=== PATIENT | female | born 1950 | race Caucasian/White ===

== ENCOUNTER 2018-11-04 15:35 | Inpatient (IN) | payer BC ==
[2018-11-04] MEDS ORDERED: CEPACOL LOZENGE PO PRN (17:30)
[2018-11-04] MEDS ORDERED: ONDANSETRON DISINTEGRATING 4 MG TAB PO PRN (17:30)
[2018-11-04] MEDS ORDERED: BISACODYL 10 MG SUPP PR PRN (17:30)
[2018-11-04] MEDS ORDERED: GUAIFENESIN/DM 10 ML UDCUP PO PRN (17:30)
[2018-11-04] MEDS ORDERED: POLYETHYLENE GLYCOL 3350 17 GM PKT PO PRN (17:30)
[2018-11-04] MEDS ORDERED: ACETAMINOPHEN 325 MG TAB PO PRN (17:30)
--- NOTE | 2018-11-04 19:01 | GHP ---
[f rep st] HISTORY AND PHYSICAL POST ADMISSION PHYSICIAN EVALUATION AND REHABILITATION TREATMENT PLAN DATE OF ADMISSION: 11/04/2018 DATE OF EVALUATION: November 04, 2018 TIME OF EVALUATION: 1540 REFERRING FACILITY: [facility]. IMPAIRMENT GROUP: 2.1. DATE OF ONSET: 10/21/2018 REFERRING PHYSICIANS: She was on the hospital medicine service. CONSULTING PHYSICIANS: She was seen by Infectious Disease, Nephrology, and Neurology. REHABILITATION DIAGNOSIS: Encephalitis. ETIOLOGIC DIAGNOSIS: Nontraumatic brain dysfunction. HISTORY OF PRESENT ILLNESS: This patient had an approximately 6-day history of illness, including fevers and myalgias. She had 2 visits to Urgent Care. Initially she was diagnosed with a possible UTI and treated with oral antibiotics. She was tested for influenza, and this was negative. On her second Urgent Care visit, she was transferred to the emergency department for further evaluation of malaise, confusion, and dehydration. She was diagnosed with encephalopathy based on her clinical presentation plus CSF pleocytosis, predominantly lymphocytes. She also had elevated white blood cell count. Evaluation included head CT and brain MRI, which ruled out stroke or any other anatomic intracranial abnormality. She had an EEG, which showed right cortical abnormalities for which she was begun on levetiracetam. She had an extensive workup for autoimmune and infectious etiologies. She was positive for Aden- Carty virus, but this was likely remote. She was negative for HSV and VZV. Hospital course included acute kidney injury due to acyclovir, which was discontinued, and subsequently she was negative for HSV or VZV. On repeat LP she had worsening pleocytosis with a white count of 208, again predominantly lymphocytes. Glucose was 33, and protein was 67. Hospital course included delirium, which was treated with haloperidol. There was also a dose of lorazepam given, though it is unclear whether that might have been done for the purpose of brain imaging. She has had insomnia. She had constipation, which was relieved after 7 days with a large bowel movement and subsequently has been constipated for the past 4 days. She was treated with initially vancomycin and ceftriaxone. Subsequently, the vancomycin was discontinued. Ceftriaxone was continued, and her last day of it is tomorrow. She had clinical improvement and was appropriate for inpatient rehabilitation. Currently, she complains of a tremor, weakness, and loss of appetite. Other studies and labs during her stay: Most recently, a basic metabolic profile from this morning was overall normal. Her potassium was slightly low at 3.4. She has had extensive potassium replacement during her hospitalization. CBC this morning was normal with no elevated white blood cell count, no anemia, and normal platelet count. PRECAUTIONS: She is a fall risk. She has seizure precautions. ACTIVE COMORBIDITIES: She has no active Tier 1, Tier 2 or Tier 3 comorbidities. PAST MEDICAL HISTORY: She has been healthy and has not had medical illnesses. PAST SURGICAL HISTORY: She has had a hysterectomy. PRE-HOSPITAL MEDICATIONS: Cefdinir and ibuprofen. ADMISSION MEDICATIONS: 1. Acetaminophen 650 mg p.o. q.4 hours p.r.n. 2. Cepacol lozenge q.1 hour p.r.n. 3. Benzonatate 100 mg p.o. q.4 hours p.r.n. 4. Bisacodyl 10 mg per rectum q. day p.r.n. 5. Guaifenesin/dextromethorphan 10 mL p.o. q.4 hours p.r.n. 6. Levetiracetam 500 mg p.o. b.i.d. 7. Mirtazapine 15 mg p.o. q.h.s. 8. Ondansetron 4 mg p.o. q.4 hours p.r.n. 9. Polyethylene glycol 17 g p.o. q. day p.r.n. 10. Potassium chloride 20 mEq p.o. Twice daily 11. Senna/docusate 1 tablet p.o. q. day. ALLERGIES: There are no known drug allergies. PSYCHOSOCIAL HISTORY: She is . She lives with her . Her adult daughter is involved in her care. There are 2 steps to enter the house and 8 stairs to the second floor. 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 She is a smoker but has not smoked since she has been hospitalized. FAMILY HISTORY: Noncontributory. REVIEW OF SYSTEMS: She has a tremor. She has a reduced appetite. She has constipation x4 days. She feels generalized weakness, and she has lost weight. She denies fevers or chills. She denies vision changes, difficulty swallowing , weakness, numbness or tingling of the extremities. She denies loss of sense of smell. She has a cough which is nonproductive. She denies dyspnea. She denies mouth pain or pain with swallowing. She denies chest pain or palpitations. She denies nausea or vomiting. She denies abdominal pain. She denies dysuria or urinary frequency. There is no vaginal discharge or pruritus. There is no joint pain or joint swelling. There is no skin rash or skin breakdown. Otherwise, a 10-point review of systems is negative. PHYSICAL EXAMINATION: VITAL SIGNS: Vitals are not yet available in the chart. Her weight is 48.2 kg for a body mass index of 21.8. GENERAL: This is a well -nourished, well-developed woman lying in bed, dressed in street clothes, cooperative and in no acute distress. HEENT: Extraocular movements are intact. Pupils are equal, round, and reactive to light. Mucous membranes are moist. Dentition is in good condition. She has a moderately crowded airway, Mallampati class III. There is no oropharyngeal erythema or exudate. NECK: Supple. HEART: There are regular rate and rhythm with a 2/6 systolic murmur heard best at the left sternal border. LUNGS: Clear to auscultation bilaterally. ABDOMEN: Soft, nontender, nondistended with normoactive bowel sounds and no hepatosplenomegaly. EXTREMITIES: There is no cyanosis, clubbing , or edema. Radial and dorsalis pedis pulses are 2+ bilaterally. NEUROLOGIC: She is alert and oriented x3. Cranial nerves 2 through 12 are grossly intact. She is able to distinguish and identify smells presented by her daughter. There is no focal weakness. Sensation is intact to light touch. Deep tendon reflexes are 2 to 3+ bilaterally at the biceps, patellar, and Achilles tendons. [id number] pointing is accurate but confounded somewhat by an intention tremor. There is no rest tremor. Rapid alternating movements are normal. CURRENT LEVEL OF FUNCTION PER THE PREADMISSION SCREEN: Regarding diet, feeding , and swallowing, she had no dysphagia. She required close supervision and minimal assist due to tremors. She did grooming with contact guard assist standing at sink. Toileting was done with contact guard assist with front- wheeled walker for transfers. Bed mobility required contact guard assist with voice cues to initiate the task. Transfers were done with contact guard assist and voice cues for hand placement; she required repetition for sequencing. Regarding balance, she was noted to have delayed balance reactions requiring contact guard to minimal assist for dynamic activities. Endurance was fair. She ambulated 500 feet with contact guard assist and directional cues. She had multiple losses of balance requiring assistance to correct. Communication was considered normal. Regarding cognition, she was considered to have decreased safety judgment. She was a fall risk. On today's exam, there are no significant changes from the preadmission screen. IMPRESSION: This is a 67-year-old woman who has an encephalitis of unknown etiology. She has improved with treatment with ceftriaxone. It is possible that it was bacterial and cultures were negative because of oral antibiotics that she was taking previously. She has had a very full workup with some labs still pending. She has had considerable functional improvement, including improvement in cognition, though she had significant delirium while in the hospital. She has had constipation. She has a reduced appetite. She has had difficulty with sleep. She has had hypokalemia. She is otherwise medically stable and appropriate for inpatient rehabilitation. Her goal is to complete a rehabilitation stay and then return home with her family and supportive services. For a safe discharge, she will need to progress to modified independence for ADLs and functional activities using the least restrictive device. She will need to be aware of any cognitive impairments and use compensatory strategies. She will have therapy with physical therapy, occupational therapy, and speech and language pathology for 60 minutes per day for each discipline, on 5-7 days of the week. Her expected duration of stay is 5-7 days. It is anticipated that upon discharge she will benefit from outpatient or home health services, including OT, [facility], PT, and nursing. PLAN: 1. Encephalitis with prolonged hospitalization, weakness, and deficits to mobility and ADLs: PT and OT to optimize mobility and ADLs toward the independent or modified independent level. 2. Status post delirium with cognitive impairment: Evaluation and treatment per Speech and Language Pathology. 3. Cough of unclear etiology: She has had normal chest x-rays, normal white blood cell count at the end of her hospitalization and no dyspnea. Continue cough suppressant medications. 4. Hypokalemia. Continue potassium replacement. Check BMP and magnesium in the morning. 5. Abnormal EEG in the hospital for which she has been prescribed levetiracetam: This will be continued until she follows up with Neurology after her discharge for decision on the need for continued levetiracetam. There was no seizure activity seen in the hospital. 6. Mirtazapine has been prescribed, presumably for insomnia, and may have appetite-stimulating effects as well. She will be monitored for adequacy of sleep. She will meet with the dietitian, and her family was encouraged to bring in foods that she likes. I will order daily weights. 7. Tobacco dependence syndrome: Should she developed cigarette craving, I will initiate a nicotine patch. 8. Constipation: Continue scheduled senna/docusate. I will change the polyethylene glycol from p.r.n. to scheduled. Fleet enema and bisacodyl suppository are available on an as-needed basis. 9. Prophylaxis: She has ambulated 500 feet. She does not have any paresis. She is low risk for deep vein thrombosis, and she will not have pharmacologic prophylaxis. 10. Followup: She will follow up with [facility] after her discharge. Will need to identify her primary care provider as well. /[id number]/MODL MTDD
[2018-11-04] MEDS: levETIRAcetam 500 MG TAB PO SCH (22:09)
[2018-11-04] MEDS: POTASSIUM CL 20 MEQ/15 ML UDCUP PO SCH (22:09)
[2018-11-04] MEDS: MIRTAZAPINE 15 MG TAB PO SCH (22:09)
[2018-11-05] MEDS: SENNOSIDES/DOCUSATE SODIUM TAB PO SCH (09:03)
[2018-11-05] MEDS: levETIRAcetam 500 MG TAB PO SCH ×2 (09:03→21:01)
[2018-11-05] MEDS: POTASSIUM CL 20 MEQ/15 ML UDCUP PO SCH (09:03)
[2018-11-05] MEDS: POLYETHYLENE GLYCOL 3350 17 GM PKT PO SCH (09:03)
--- NOTE | 2018-11-05 09:50 | SOAPPROG ---
SOAP Progress Note Assessment/Plan: Assessment: Encephalitis with prolonged hospitalization, weakness, and deficits to mobility and ADLs: PT and OT to optimize mobility and ADLs toward the independent or modified independent level. Status post delirium with cognitive impairment: Evaluation and treatment per Speech and Language Pathology. Cough of unclear etiology: She has had normal chest x-rays, normal white blood cell count at the end of her hospitalization and no dyspnea. Continue cough suppressant medications. * As she is a smoker, will get chest CT to evaluate for malignancy, or any other etiology of cough. Hypokalemia. Continue potassium replacement. Check BMP and magnesium in the morning. Abnormal EEG in the hospital for which she has been prescribed levetiracetam: This will be continued until she follows up with Neurology after her discharge for decision on the need for continued levetiracetam. There was no seizure activity seen in the hospital. Mirtazapine has been prescribed, presumably for insomnia, and may have appetite- stimulating effects as well. She will be monitored for adequacy of sleep. She will meet with the dietitian, and her family was encouraged to bring in foods that she likes. I will order daily weights. Tobacco dependence syndrome: Should she developed cigarette craving, I will initiate a nicotine patch. Constipation: Continue scheduled senna/docusate. I will change the polyethylene glycol from p.r.n. to scheduled. Fleet enema and bisacodyl suppository are available on an as-needed basis. Prophylaxis: She has ambulated 500 feet. She does not have any paresis. She is low risk for deep vein thrombosis, and she will not have pharmacologic prophylaxis. Followup: She will follow up with [facility] after her discharge. Will need to identify her primary care provider as well. 11/05/18 13:13 Subjective: Slept well last night. Does not feel over-sedated. No fevers or chills, no dyspnea. Still has reduced appetite, constipation, and cough. She coughed some at night but did not interfere with her sleep. Occasionally there is scant mucus. She denies symptoms of gastroesophageal reflux or sinusitis. Objective: Vital Signs Temp Pulse Resp BP Pulse Ox 36.5 C 85 16 151/87 H 94 11/05/18 06:15 11/05/18 06:15 11/05/18 06:15 11/05/18 06:15 11/05/18 06:15 Laboratory Results 11/05/18 06:05 11/04/18 11/05/18 11/06/18 05:59 05:59 05:59 Intake Total 275 Output Total 400 Balance -125 Physical Exam - Physical Exam General Appearance: WD/WN, alert, no apparent distress Respiratory: normal breath sounds, other (Occasional cough, especially when discussing cough, without sputum.), No crackles, No rhonchi, No wheezing Cardiac/Chest: regular rate, rhythm, No edema, No diastolic murmur, No systolic murmur Skin: normal color, warm/dry Neuro/Psych: alert, normal mood/affect, other (Resting tremor right shoulder and arm) ICD10 Worksheet Patient Problems: Problems Problem Status Onset Encephalitis Acute
--- NOTE | 2018-11-05 12:31 | PDOREHIP ---
Admission [facility] - Admission - 3 Day Assessment Period Admission Date/Day 1: 11/04/18 Day 2: 11/05/18 Day 3: 11/06/18 - Active Diagnoses Comorbidities and Co-existing Conditions at Admission: 79351. None of the Above - Skin Conditions Unhealed Pressure Ulcer (1 or more/Stage 1 or >)-Admission: 0. No # Stage 1 Pressure Ulcers-Admission: 0 # Stage 2 Pressure Ulcers-Admission: 0 # Stage 3 Pressure Ulcers-Admission: 0 # Stage 4 Pressure Ulcers-Admission: 0 # Unstageable Pressure Ulcers (Non-remove Dress)-Admission: 0 # Unstageable Pressure Ulcers (Slough/Eschar)-Admission: 0 # Unstageable Pressure Ulcers (Deep Tissue Injury)-Admission: 0
[2018-11-05] MEDS: BENZONATATE 100 MG CAP PO PRN ×2 (14:19→21:16)
[2018-11-05] MEDS ORDERED: IOPAMIDOL (ISOVUE-300) 100 ML BTL ONE (16:34)
[2018-11-05] MEDS: ENOXAPARIN 60 MG/0.6 ML SYR SC SCH (18:01)
[2018-11-05] MEDS: MIRTAZAPINE 15 MG TAB PO SCH (21:01)
[2018-11-06] MEDS: ENOXAPARIN 60 MG/0.6 ML SYR SC SCH ×2 (09:44→21:54)
[2018-11-06] MEDS: levETIRAcetam 500 MG TAB PO SCH ×2 (09:44→20:14)
[2018-11-06] MEDS: SENNOSIDES/DOCUSATE SODIUM TAB PO SCH ×2 (09:45→20:14)
[2018-11-06] MEDS: POLYETHYLENE GLYCOL 3350 17 GM PKT PO SCH ×2 (09:45→20:14)
--- NOTE | 2018-11-06 10:00 | SOAPPROG ---
SOAP Progress Note Assessment/Plan: Assessment: Encephalitis with prolonged hospitalization, weakness, and deficits to mobility and ADLs: * Minimal assist for most ADLs. * Continue PT and OT to optimize mobility and ADLs toward the independent or modified independent level. Status post delirium with cognitive impairment: * Scored 18/30 on the [place] cognitive assessment. * Continue treatment per Speech and Language Pathology. Pulmonary emboli, discovered in evaluation for cough of unclear etiology: She has had normal chest x-rays, normal white blood cell count at the end of her hospitalization and no dyspnea. Continue cough suppressant medications. * Chest CT, 11/05/2018, showed pulmonary emboli. She was begun on enoxaparin. Discussed with her pharmacy, 11/06/2018. Her insurance plan covers dabigatran with a $40 co-pay. Changed to dabigatran 150 mg p.o. twice daily on 11/06/2018. * Chest CT also showed atelectasis and small pleural effusions. Encourage incentive spirometry. * Chest CT also showed central lobular emphysema. Will have trial of albuterol and we will continue it if she gets resolution of cough. Hypokalemia. * Normal potassium and magnesium on 11/05/2018. Discontinued potassium replacement. Check BMP 11/07/2018. Tremor. Trial of propranolol at 10 mg three times daily. Consider titration if it is not effective, with close attention to blood pressure and pulse.. Insomnia. She has had mirtazapine for her to nights on inpatient rehabilitation. She is over sedated the morning of 11/06/2018. Will discontinue mirtazapine. Expect she will sleep better than she did in the hospital in the more peaceful rehabilitation milieu, with no interruptions for cares overnight. Anorexia and weight loss. Continue to encourage caloric intake. Dietitian following. Abnormal EEG in the hospital for which she has been prescribed levetiracetam: This will be continued until she follows up with Neurology after her discharge for decision on the need for continued levetiracetam. There was no seizure activity seen in the hospital. Tobacco dependence syndrome: Should she developed cigarette craving, I will initiate a nicotine patch. Constipation: Continue scheduled senna/docusate. I will change the polyethylene glycol from p.r.n. to scheduled. Fleet enema and bisacodyl suppository are available on an as-needed basis. Prophylaxis: She has ambulated 500 feet. She does not have any paresis. She is low risk for deep vein thrombosis, and she will not have pharmacologic prophylaxis. Followup: She will follow up with [facility] after her discharge. Will need to identify her primary care provider as well. 11/06/18 09:54 Subjective: Slept well last night. Difficult to awaken this morning and feels drowsy. Still has cough. Denies dyspnea. Denies chest pain. Still has tremor. Objective: Vital Signs Temp Pulse Resp BP Pulse Ox 36.4 C 84 16 126/86 H 94 11/06/18 08:00 11/06/18 05:38 11/06/18 05:38 11/06/18 05:38 11/06/18 05:38 Laboratory Results 11/05/18 06:05 11/05/18 11/06/18 11/07/18 05:59 05:59 05:59 Intake Total 275 955 Output Total 400 725 Balance -125 230 Physical Exam - Physical Exam General Appearance: WD/WN, alert, no apparent distress Respiratory: normal breath sounds, other (Coughs with deep inspiration), No crackles, No rhonchi, No wheezing Cardiac/Chest: regular rate, rhythm, No edema, No diastolic murmur, No systolic murmur Skin: normal color, warm/dry Extremities: No calf tenderness Neuro/Psych: alert, normal mood/affect, cognition abnormalities (Slow processing ), other (Bilateral upper extremity tremor) ICD10 Worksheet Patient Problems: Problems Problem Status Onset Encephalitis Acute
[2018-11-06] MEDS: PROPRANOLOL HCL 10 MG TAB PO SCH ×2 (16:06→21:51)
[2018-11-06] MEDS: BENZONATATE 100 MG CAP PO PRN (20:27)
[2018-11-06] MEDS ORDERED: DABIGATRAN ETEXILATE MESYL 150 MG CAP PO SCH (21:00)
[2018-11-07] MEDS: BENZONATATE 100 MG CAP PO PRN ×3 (01:27→19:42)
[2018-11-07] MEDS: PROPRANOLOL HCL 10 MG TAB PO SCH ×2 (08:16→17:21)
[2018-11-07] MEDS: levETIRAcetam 500 MG TAB PO SCH ×2 (08:16→20:47)
[2018-11-07] MEDS: ENOXAPARIN 60 MG/0.6 ML SYR SC SCH ×2 (08:18→20:48)
[2018-11-07] MEDS ORDERED: PROPRANOLOL HCL 10 MG TAB PO SCH (11:30)
--- NOTE | 2018-11-07 11:46 | SOAPPROG ---
SOAP Progress Note Assessment/Plan: Assessment: Encephalitis with prolonged hospitalization, weakness, and deficits to mobility and ADLs: * Minimal assist for most ADLs. * Continue PT and OT to optimize mobility and ADLs toward the independent or modified independent level. Status post delirium with cognitive impairment: * Scored 18/30 on the [place] cognitive assessment. * Continue treatment per Speech and Language Pathology. Pulmonary emboli, discovered in evaluation for cough of unclear etiology: She has had normal chest x-rays, normal white blood cell count at the end of her hospitalization and no dyspnea. Continue cough suppressant medications. * Chest CT, 11/05/2018, showed pulmonary emboli. She was begun on enoxaparin. Discussed with her pharmacy, 11/06/2018. Her insurance plan covers dabigatran with a $40 co-pay. Continue enoxaparin twice daily x5 days, then change to dabigatran 150 mg p.o. twice daily starting evening of 11/10/2018. * Chest CT also showed atelectasis and small pleural effusions. Encourage incentive spirometry. * Chest CT also showed central lobular emphysema. Will have trial of albuterol and we will continue it if she gets resolution of cough. Hypokalemia. * Normal potassium and magnesium on 11/05/2018. Discontinued potassium replacement. Check BMP 11/07/2018. Tremor. Trial of propranolol at 10 mg three times daily. * Unclear efficacy for tremor. Await observation is of nursing and therapies. Has had a slight decrease in blood pressure and pulse so unclear how much room there is for titration. Insomnia. She has had mirtazapine for her to nights on inpatient rehabilitation. She is over sedated the morning of 11/06/2018. Will discontinue mirtazapine. Expect she will sleep better than she did in the hospital in the more peaceful rehabilitation milieu, with no interruptions for cares overnight. Anorexia and weight loss. Continue to encourage caloric intake. Dietitian following. Abnormal EEG in the hospital for which she has been prescribed levetiracetam: This will be continued until she follows up with Neurology after her discharge for decision on the need for continued levetiracetam. There was no seizure activity seen in the hospital. Tobacco dependence syndrome: Should she developed cigarette craving, I will initiate a nicotine patch. Constipation: Continue scheduled senna/docusate. I will change the polyethylene glycol from p.r.n. to scheduled. Fleet enema and bisacodyl suppository are available on an as-needed basis. Prophylaxis: She has ambulated 500 feet. She does not have any paresis. She is low risk for deep vein thrombosis, and she will not have pharmacologic prophylaxis. Followup: She will follow up with [facility] after her discharge. Will need to identify her primary care provider as well. 11/07/18 11:33 Subjective: Reports she slept well overnight. Then she was sleepy and napping after breakfast. She thinks her tremor might be a little bit better. She still has a cough and took benzonatate yesterday evening. Otherwise without complaints. Objective: Vital Signs Temp Pulse Resp BP Pulse Ox 36.8 C 69 16 118/74 93 11/07/18 05:41 11/07/18 08:16 11/07/18 05:41 11/07/18 08:16 11/07/18 05:41 Laboratory Results 11/07/18 05:40 11/06/18 11/07/18 11/08/18 05:59 05:59 05:59 Intake Total 955 520 205 Output Total 725 Balance 230 520 205 Physical Exam - Physical Exam General Appearance: WD/WN, alert, no apparent distress Respiratory: normal breath sounds, other (Coughs with deep inspiration), No crackles, No rhonchi, No wheezing Cardiac/Chest: regular rate, rhythm, No diastolic murmur, No systolic murmur Skin: normal color, warm/dry Neuro/Psych: alert, normal mood/affect, oriented x 3, other (Extension tremor) ICD10 Worksheet Patient Problems: Problems Problem Status Onset Encephalitis Acute
[2018-11-08] MEDS: BENZONATATE 100 MG CAP PO PRN ×2 (05:28→13:40)
[2018-11-08] MEDS: PROPRANOLOL HCL 10 MG TAB PO SCH ×2 (07:23→17:40)
[2018-11-08] MEDS: ENOXAPARIN 60 MG/0.6 ML SYR SC SCH ×2 (07:28→20:15)
[2018-11-08] MEDS: levETIRAcetam 500 MG TAB PO SCH ×2 (07:59→20:15)
[2018-11-08] MEDS: POLYETHYLENE GLYCOL 3350 17 GM PKT PO SCH (07:59)
[2018-11-08] MEDS: SENNOSIDES/DOCUSATE SODIUM TAB PO SCH (08:00)
--- NOTE | 2018-11-08 11:32 | SOAPPROG ---
SOAP Progress Note Assessment/Plan: Assessment: Encephalitis with prolonged hospitalization, weakness, and deficits to mobility and ADLs: * Initial functional independence measure is 71 on 11/08/2018. Standby assist for bed mobility. Cues to initiate. Ambulated 150 ft with contact guard assist and front wheeled walker. She tends to veer to the right. Transfer requires contact guard assist. Climbed and descended 3 stairs with bilateral rails, contact guard to minimal assist. Fall risk due to impulsivity and impaired balance. She can forget to take her walker with her. Grooming and hygiene are done standing with contact guard assist. Upper body dressing with minimal assist, lower body with contact guard assist. Toilet transfer and toileting with contact guard assist per * Continue PT and OT to optimize mobility and ADLs toward the independent or modified independent level. Status post delirium with cognitive impairment: * Scored 18/30 on the [facility] cognitive assessment on 11/05/2018. OLOG 18/30 on 11/08/2018. * Moderate to severe cognitive deficits. * Continue treatment per Speech and Language Pathology. Pulmonary emboli, discovered in evaluation for cough of unclear etiology: She has had normal chest x-rays, normal white blood cell count at the end of her hospitalization and no dyspnea. Continue cough suppressant medications. * Chest CT, 11/05/2018, showed pulmonary emboli. She was begun on enoxaparin. Discussed with her pharmacy, 11/06/2018. Her insurance plan covers dabigatran with a $40 co-pay. Continue enoxaparin twice daily x5 days, then change to dabigatran 150 mg p.o. twice daily starting evening of 11/10/2018. * Chest CT also showed atelectasis and small pleural effusions. Encourage incentive spirometry. * Chest CT also showed central lobular emphysema. Will have trial of albuterol and we will continue it if she gets resolution of cough. Hypokalemia. * Normal potassium and magnesium on 11/05/2018. Discontinued potassium replacement. Check BMP 11/07/2018. Tremor. Trial of propranolol at 15 mg twice daily. * Unclear efficacy for tremor. Await observation is of nursing and therapies. Has had a slight decrease in blood pressure and pulse so unclear how much room there is for titration. * Improved ability to eat will less interference from tremor using weighted utensils. Insomnia. She has had mirtazapine for her to nights on inpatient rehabilitation. She is oversedated the morning of 11/06/2018. Discontinued mirtazapine. * Sleeping well Anorexia and weight loss. Continue to encourage caloric intake. Dietitian following. * Taking 50% of meals, plus supplements. Abnormal EEG in the hospital for which she has been prescribed levetiracetam: This will be continued until she follows up with Neurology after her discharge for decision on the need for continued levetiracetam. There was no seizure activity seen in the hospital. Tobacco dependence syndrome: Should she developed cigarette craving, I will initiate a nicotine patch. Constipation: Continue scheduled senna/docusate and polyethylene glycol. * Responding. Prophylaxis: Continue treatment dose enoxaparin until changed to dabigatran on 11/10/2018. DISPOSITION: Attended staffing, 11/08/2018, 15 min. Discussed with case management, nursing, dietitian, PT, OT, SUGAR LABORATORY ASSISTANT. Lives with who is retired and available 24 hr a day; adult daughter also lives with them. Goal is independent or modified independent with activities of daily living and mobility and improved cognition for safety at home. Tentative discharge date set for 11/17/2018. Followup: She will follow up with [facility] after her discharge. Will need to identify her primary care provider as well. 11/08/18 11:21 Subjective: Slept well. Has increased awareness of cognitive/memory deficits. Still has cough. Denies reflux symptoms though speech therapist thinks she witnessed a reflux event. Objective: Vital Signs Temp Pulse Resp BP Pulse Ox 36.8 C 77 16 135/72 H 92 11/08/18 06:11 11/08/18 07:23 11/08/18 06:11 11/08/18 07:23 11/08/18 06:11 Laboratory Results 11/07/18 05:40 11/07/18 11/08/18 11/09/18 05:59 05:59 05:59 Intake Total 520 775 270 Balance 520 775 270 Physical Exam - Physical Exam General Appearance: WD/WN, alert, no apparent distress Respiratory: normal breath sounds, other (Coughing at end of expirations), No crackles, No rhonchi, No stridor Cardiac/Chest: regular rate, rhythm, No edema, No JVD, No diastolic murmur, No systolic murmur Skin: normal color, warm/dry Neuro/Psych: alert, normal mood/affect, other (Normal gait, with front wheeled walker.) ICD10 Worksheet Patient Problems: Problems Problem Status Onset Encephalitis Acute
[2018-11-09] MEDS: ENOXAPARIN 60 MG/0.6 ML SYR SC SCH ×2 (07:29→20:20)
[2018-11-09] MEDS: PROPRANOLOL HCL 10 MG TAB PO SCH ×2 (07:31→18:14)
[2018-11-09] MEDS: POLYETHYLENE GLYCOL 3350 17 GM PKT PO SCH (08:08)
[2018-11-09] MEDS: BENZONATATE 100 MG CAP PO PRN ×2 (08:10→14:22)
[2018-11-09] MEDS: levETIRAcetam 500 MG TAB PO SCH ×2 (08:11→20:20)
[2018-11-09] MEDS: SENNOSIDES/DOCUSATE SODIUM TAB PO SCH (08:12)
--- NOTE | 2018-11-09 13:08 | SOAPPROG ---
SOAP Progress Note Assessment/Plan: Assessment: Encephalitis with prolonged hospitalization, weakness, and deficits to mobility and ADLs: * Initial functional independence measure is 71 on 11/08/2018. Standby assist for bed mobility. Cues to initiate. Ambulated 150 ft with contact guard assist and front wheeled walker. She tends to veer to the right. Transfer requires contact guard assist. Climbed and descended 3 stairs with bilateral rails, contact guard to minimal assist. Fall risk due to impulsivity and impaired balance. She can forget to take her walker with her. Grooming and hygiene are done standing with contact guard assist. Upper body dressing with minimal assist, lower body with contact guard assist. Toilet transfer and toileting with contact guard assist per * Continue PT and OT to optimize mobility and ADLs toward the independent or modified independent level. Status post delirium with cognitive impairment: * Scored 18/30 on the [facility] cognitive assessment on 11/05/2018. OLOG 18/30 on 11/08/2018. * Moderate to severe cognitive deficits. * Continue treatment per Speech and Language Pathology. Pulmonary emboli, discovered in evaluation for cough of unclear etiology: She has had normal chest x-rays, normal white blood cell count at the end of her hospitalization and no dyspnea. Continue cough suppressant medications. * Chest CT, 11/05/2018, showed pulmonary emboli. She was begun on enoxaparin. Discussed with her pharmacy, 11/06/2018. Her insurance plan covers dabigatran with a $40 co-pay. Continue enoxaparin twice daily x5 days, then change to dabigatran 150 mg p.o. twice daily starting evening of 11/10/2018. * Chest CT also showed atelectasis and small pleural effusions. Encourage incentive spirometry. * Chest CT also showed central lobular emphysema. Will have trial of albuterol and we will continue it if she gets resolution of cough. Hypokalemia. * Normal potassium and magnesium on 11/05/2018. Discontinued potassium replacement. Normal BMP 11/07/2018. Tremor. Trial of propranolol at 15 mg twice daily. * Unclear efficacy for tremor. Await observation is of nursing and therapies. Has had a slight decrease in blood pressure and pulse so unclear how much room there is for titration. * Improved ability to eat will less interference from tremor using weighted utensils. * OT notes reduced tremor, 11/09/2018. Insomnia. She has had mirtazapine first 2 nights on inpatient rehabilitation. She is oversedated the morning of 11/06/2018. Discontinued mirtazapine. * Sleeping well Anorexia and weight loss. Continue to encourage caloric intake. Dietitian following. * Taking 50% of meals, plus supplements. Abnormal EEG in the hospital for which she has been prescribed levetiracetam: This will be continued until she follows up with Neurology after her discharge for decision on the need for continued levetiracetam. There was no seizure activity seen in the hospital. Tobacco dependence syndrome: Denies craving, 11/09/2018. Constipation: Continue scheduled senna/docusate and polyethylene glycol. * Responding. Prophylaxis: Continue treatment dose enoxaparin until changed to dabigatran on 11/10/2018. DISPOSITION: Attended staffing, 11/08/2018, 15 min. Discussed with case management, nursing, dietitian, PT, OT, CYLINDER MACHINE OPERATOR PULP DRIER. Lives with who is retired and available 24 hr a day; adult daughter also lives with them. Goal is independent or modified independent with activities of daily living and mobility and improved cognition for safety at home. Tentative discharge date set for 11/17/2018. Followup: She will follow up with [facility] after her discharge. Will need to identify her primary care provider as well. 11/09/18 13:05 Subjective: No complaints. Slept well. Not in pain. Still is still has a cough, nonproductive. She feels a tickle in her chest but not in her throat. No dyspnea, no fevers or chills. Appetite improving. Objective: Vital Signs Temp Pulse Resp BP Pulse Ox 36.4 C 64 14 107/69 96 11/09/18 12:45 11/09/18 12:45 11/09/18 12:45 11/09/18 12:45 11/09/18 12:45 Laboratory Results 11/07/18 05:40 11/08/18 11/09/18 11/10/18 05:59 05:59 05:59 Intake Total 775 835 Output Total 300 Balance 775 535 Physical Exam - Physical Exam General Appearance: WD/WN, alert, no apparent distress Respiratory: normal breath sounds, other (Coughs with expiration.), No crackles , No rhonchi, No wheezing Cardiac/Chest: regular rate, rhythm, No JVD, No diastolic murmur, No systolic murmur Skin: normal color, warm/dry Neuro/Psych: alert, normal mood/affect, oriented x 3 ICD10 Worksheet Patient Problems: Problems Problem Status Onset Encephalitis Acute
[2018-11-10] MEDS: SENNOSIDES/DOCUSATE SODIUM TAB PO SCH (08:56)
[2018-11-10] MEDS: levETIRAcetam 500 MG TAB PO SCH ×2 (08:56→20:24)
[2018-11-10] MEDS: PROPRANOLOL HCL 10 MG TAB PO SCH ×2 (08:57→17:26)
[2018-11-10] MEDS: ENOXAPARIN 60 MG/0.6 ML SYR SC SCH (09:00)
[2018-11-10] MEDS: BENZONATATE 100 MG CAP PO PRN ×3 (09:13→19:32)
--- NOTE | 2018-11-10 09:36 | SOAPPROG ---
SOAP Progress Note Assessment/Plan: Assessment: Encephalitis with prolonged hospitalization, weakness, and deficits to mobility and ADLs: * Initial functional independence measure is 71 on 11/08/2018. Standby assist for bed mobility. Cues to initiate. Ambulated 150 ft with contact guard assist and front wheeled walker. She tends to veer to the right. Transfer requires contact guard assist. Climbed and descended 3 stairs with bilateral rails, contact guard to minimal assist. Fall risk due to impulsivity and impaired balance. She can forget to take her walker with her. Grooming and hygiene are done standing with contact guard assist. Upper body dressing with minimal assist, lower body with contact guard assist. Toilet transfer and toileting with contact guard assist. * Continue PT and OT to optimize mobility and ADLs toward the independent or modified independent level. Status post delirium with cognitive impairment, improving: * Scored 18/30 on the [facility] cognitive assessment on 11/05/2018. OLOG 18/30 on 11/08/2018, 21/30 on 11/09/2018. * Moderate to severe cognitive deficits. * Continue treatment per Speech and Language Pathology. Pulmonary emboli, discovered in evaluation for cough of unclear etiology: She has had normal chest x-rays, normal white blood cell count at the end of her hospitalization and no dyspnea. Continue cough suppressant medications. * Chest CT, 11/05/2018, showed pulmonary emboli. She was begun on enoxaparin. Discussed with her pharmacy, 11/06/2018. Her insurance plan covers dabigatran with a $40 co-pay. Continue enoxaparin twice daily x5 days, then change to dabigatran 150 mg p.o. twice daily starting evening of 11/10/2018. * Chest CT also showed atelectasis and small pleural effusions. Encourage incentive spirometry. * Chest CT also showed central lobular emphysema. Will have trial of albuterol and we will continue it if she gets resolution of cough. Hypokalemia. * Normal potassium and magnesium on 11/05/2018. Discontinued potassium replacement. Normal BMP 11/07/2018. Tremor. Trial of propranolol at 15 mg twice daily. * Improved. Not needing weighted utensils on 11/10/2018. * Continue propranolol. Insomnia. She has had mirtazapine first 2 nights on inpatient rehabilitation. She is oversedated the morning of 11/06/2018. Discontinued mirtazapine. * Sleeping well Anorexia and weight loss. Continue to encourage caloric intake. Dietitian following. * Taking 50% of meals, plus supplements. Abnormal EEG in the hospital for which she has been prescribed levetiracetam: This will be continued until she follows up with Neurology after her discharge for decision on the need for continued levetiracetam. There was no seizure activity seen in the hospital. Tobacco dependence syndrome: Denies craving, 11/09/2018. Constipation: Continue scheduled senna/docusate and polyethylene glycol. * Responding. Prophylaxis: Continue treatment dose enoxaparin until changed to dabigatran on 11/10/2018. DISPOSITION: Attended staffing, 11/08/2018, 15 min. Discussed with case management, nursing, dietitian, PT, OT, COPYRIGHT EXPERT. Lives with who is retired and available 24 hr a day; adult daughter also lives with them. Goal is independent or modified independent with activities of daily living and mobility and improved cognition for safety at home. Tentative discharge date set for 11/17/2018. Followup: She will follow up with [facility] after her discharge. Will need to identify her primary care provider as well. 11/10/18 12:10 Subjective: No complaints. Slept well. Has fatigue today after being more active with therapies yesterday. Reports cough is improving. Objective: Vital Signs Temp Pulse Resp BP Pulse Ox 36.8 C 69 15 106/66 95 11/10/18 05:58 11/10/18 08:57 11/10/18 05:58 11/10/18 08:57 11/10/18 05:58 Laboratory Results 11/07/18 05:40 11/09/18 11/10/18 11/11/18 05:59 05:59 05:59 Intake Total 835 320 Output Total 300 250 Balance 535 70 Physical Exam - Physical Exam General Appearance: WD/WN, alert, no apparent distress Respiratory: No respiratory distress, No accessory muscle use Skin: normal color, warm/dry Neuro/Psych: alert, normal mood/affect, oriented x 3 ICD10 Worksheet Patient Problems: Problems Problem Status Onset Encephalitis Acute
[2018-11-10] MEDS: POLYETHYLENE GLYCOL 3350 17 GM PKT PO SCH (11:03)
[2018-11-10] MEDS: DABIGATRAN ETEXILATE MESYL 150 MG CAP PO SCH (20:24)
[2018-11-11] MEDS: DABIGATRAN ETEXILATE MESYL 150 MG CAP PO SCH ×2 (08:32→20:38)
[2018-11-11] MEDS: SENNOSIDES/DOCUSATE SODIUM TAB PO SCH (08:32)
[2018-11-11] MEDS: PROPRANOLOL HCL 10 MG TAB PO SCH ×2 (08:33→17:49)
[2018-11-11] MEDS: POLYETHYLENE GLYCOL 3350 17 GM PKT PO SCH (08:34)
[2018-11-11] MEDS: levETIRAcetam 500 MG TAB PO SCH ×2 (08:34→20:38)
--- NOTE | 2018-11-11 12:10 | SOAPPROG ---
SOAP Progress Note Assessment/Plan: Assessment: Encephalitis with prolonged hospitalization, weakness, and deficits to mobility and ADLs: * Initial functional independence measure is 71 on 11/08/2018. Standby assist for bed mobility. Cues to initiate. Ambulated 150 ft with contact guard assist and front wheeled walker. She tends to veer to the right. Transfer requires contact guard assist. Climbed and descended 3 stairs with bilateral rails, contact guard to minimal assist. Fall risk due to impulsivity and impaired balance. She can forget to take her walker with her. Grooming and hygiene are done standing with contact guard assist. Upper body dressing with minimal assist, lower body with contact guard assist. Toilet transfer and toileting with contact guard assist. * Continue PT and OT to optimize mobility and ADLs toward the independent or modified independent level. Status post delirium with cognitive impairment, improving: * Scored 18/30 on the [facility] cognitive assessment on 11/05/2018. OLOG 18/30 on 11/08/2018, 21/30 on 11/09/2018. * Moderate to severe cognitive deficits. * Continue treatment per Speech and Language Pathology. Pulmonary emboli, discovered in evaluation for cough of unclear etiology: She has had normal chest x-rays, normal white blood cell count at the end of her hospitalization and no dyspnea. Continue cough suppressant medications. * Chest CT, 11/05/2018, showed pulmonary emboli. She was begun on enoxaparin. Discussed with her pharmacy, 11/06/2018. Her insurance plan covers dabigatran with a $40 co-pay. Had enoxaparin twice daily x5 days, then changed to dabigatran 150 mg p.o. twice daily starting evening of 11/10/2018. Will need to continue 3-6 months. * Chest CT also showed atelectasis and small pleural effusions. Encourage incentive spirometry. * Chest CT also showed central lobular emphysema. Will have trial of albuterol and we will continue it if she gets resolution of cough. Hypokalemia. * Normal potassium and magnesium on 11/05/2018. Discontinued potassium replacement. Normal BMP 11/07/2018. Tremor. Trial of propranolol at 15 mg twice daily. * Improved. Not needing weighted utensils on 11/10/2018. * Continue propranolol. Insomnia. She has had mirtazapine first 2 nights on inpatient rehabilitation. She is oversedated the morning of 11/06/2018. Discontinued mirtazapine. * Sleeping well Anorexia and weight loss. Continue to encourage caloric intake. Dietitian following. * Taking 50% of meals, plus supplements. Abnormal EEG in the hospital for which she has been prescribed levetiracetam: This will be continued until she follows up with Neurology after her discharge for decision on the need for continued levetiracetam. There was no seizure activity seen in the hospital. Tobacco dependence syndrome: Denies craving, 11/09/2018. Constipation: Continue scheduled senna/docusate and polyethylene glycol. * Responding. Prophylaxis: Continue treatment dose enoxaparin until changed to dabigatran on 11/10/2018. DISPOSITION: Attended staffing, 11/08/2018, 15 min. Discussed with case management, nursing, dietitian, PT, OT, ALLERGIST/IMMUNOLOGIST PHYSICIAN. Lives with who is retired and available 24 hr a day; adult daughter also lives with them. Goal is independent or modified independent with activities of daily living and mobility and improved cognition for safety at home. Tentative discharge date set for 11/17/2018. Followup: She will follow up with [facility] after her discharge. Will need to identify her primary care provider as well. 11/11/18 12:09 Subjective: No complaints. Sleeping well. Not in pain. Still has a cough but is improving. No dyspnea. Objective: Vital Signs Temp Pulse Resp BP Pulse Ox 36.9 C 67 16 113/64 95 11/11/18 05:20 11/11/18 08:33 11/11/18 05:20 11/11/18 08:33 11/11/18 05:20 Laboratory Results 11/07/18 05:40 11/10/18 11/11/18 11/12/18 05:59 05:59 05:59 Intake Total 320 1030 Output Total 250 225 Balance 70 805 Physical Exam - Physical Exam General Appearance: WD/WN, alert, no apparent distress Respiratory: No respiratory distress, No accessory muscle use Skin: normal color, warm/dry Neuro/Psych: alert, normal mood/affect, oriented x 3 ICD10 Worksheet Patient Problems: Problems Problem Status Onset Encephalitis Acute
[2018-11-11] MEDS: BENZONATATE 100 MG CAP PO PRN (20:49)
[2018-11-12] MEDS: PROPRANOLOL HCL 10 MG TAB PO SCH ×2 (07:30→17:32)
[2018-11-12] MEDS: SENNOSIDES/DOCUSATE SODIUM TAB PO SCH (10:09)
[2018-11-12] MEDS: levETIRAcetam 500 MG TAB PO SCH ×2 (10:09→21:52)
[2018-11-12] MEDS: POLYETHYLENE GLYCOL 3350 17 GM PKT PO SCH (10:10)
[2018-11-12] MEDS: DABIGATRAN ETEXILATE MESYL 150 MG CAP PO SCH ×2 (10:10→21:52)
--- NOTE | 2018-11-12 12:43 | SOAPPROG ---
SOAP Progress Note Assessment/Plan: Assessment: Encephalitis with prolonged hospitalization, weakness, and deficits to mobility and ADLs: * Initial functional independence measure is 71 on 11/08/2018. Standby assist for bed mobility. Cues to initiate. Ambulated 150 ft with contact guard assist and front wheeled walker. She tends to veer to the right. Transfer requires contact guard assist. Climbed and descended 3 stairs with bilateral rails, contact guard to minimal assist. Fall risk due to impulsivity and impaired balance. She can forget to take her walker with her. Grooming and hygiene are done standing with contact guard assist. Upper body dressing with minimal assist, lower body with contact guard assist. Toilet transfer and toileting with contact guard assist. * As of 11/11/2018, ambulating 400 ft with cane standby assist, climbed and descended nerve 12 stairs with 1 rail and cane and supervision. * Continue PT and OT to optimize mobility and ADLs toward the independent or modified independent level. Status post delirium with cognitive impairment, improving: * Scored 18/30 on the [facility] cognitive assessment on 11/05/2018. OLOG 18/30 on 11/08/2018, 21/30 on 11/09/2018. * Moderate to severe cognitive deficits. * Continue treatment per Speech and Language Pathology. Pulmonary emboli, discovered in evaluation for cough of unclear etiology: She has had normal chest x-rays, normal white blood cell count at the end of her hospitalization and no dyspnea. Continue cough suppressant medications. * Chest CT, 11/05/2018, showed pulmonary emboli. She was begun on enoxaparin. Discussed with her pharmacy, 11/06/2018. Her insurance plan covers dabigatran with a $40 co-pay. Had enoxaparin twice daily x5 days, then changed to dabigatran 150 mg p.o. twice daily starting evening of 11/10/2018. Will need to continue 3-6 months. * Chest CT also showed atelectasis and small pleural effusions. Encourage incentive spirometry. * Chest CT also showed central lobular emphysema. Will have trial of albuterol and we will continue it if she gets resolution of cough. Hypokalemia. * Normal potassium and magnesium on 11/05/2018. Discontinued potassium replacement. Normal BMP 11/07/2018. Tremor. Trial of propranolol at 15 mg twice daily. * Improved. Not needing weighted utensils on 11/10/2018. * Continue propranolol. Insomnia. She has had mirtazapine first 2 nights on inpatient rehabilitation. She is oversedated the morning of 11/06/2018. Discontinued mirtazapine. * Sleeping well Anorexia and weight loss. Continue to encourage caloric intake. Dietitian following. * Taking 50% of meals, plus supplements. Abnormal EEG in the hospital for which she has been prescribed levetiracetam: This will be continued until she follows up with Neurology after her discharge for decision on the need for continued levetiracetam. There was no seizure activity seen in the hospital. Tobacco dependence syndrome: Denies craving, 11/09/2018. Constipation: Continue scheduled senna/docusate and polyethylene glycol. * Responding. Prophylaxis: Continue treatment dose enoxaparin until changed to dabigatran on 11/10/2018. DISPOSITION: Attended staffing, 11/08/2018, 15 min. Discussed with case management, nursing, dietitian, PT, OT, HAT CONDITIONER. Lives with who is retired and available 24 hr a day; adult daughter also lives with them. Goal is independent or modified independent with activities of daily living and mobility and improved cognition for safety at home. Tentative discharge date set for 11/17/2018. Followup: She will follow up with [facility] after her discharge. Will need to identify her primary care provider as well. 11/12/18 12:39 Subjective: No complaints. Sleeping well. Cough is improving. No fevers or chills, no dyspnea. Objective: Vital Signs Temp Pulse Resp BP Pulse Ox 36.7 C 71 18 126/79 H 93 11/12/18 07:25 11/12/18 07:25 11/12/18 07:25 11/12/18 07:25 11/12/18 07:25 Laboratory Results 11/07/18 05:40 11/11/18 11/12/18 11/13/18 05:59 05:59 05:59 Intake Total 1030 1040 Output Total 225 Balance 805 1040 Physical Exam - Physical Exam General Appearance: WD/WN, alert, no apparent distress Respiratory: normal breath sounds, No crackles, No rhonchi, No wheezing Cardiac/Chest: regular rate, rhythm, No diastolic murmur, No systolic murmur Skin: normal color, warm/dry Neuro/Psych: no motor/sensory deficits, alert, normal mood/affect, oriented x 3 ICD10 Worksheet Patient Problems: Problems Problem Status Onset Encephalitis Acute
[2018-11-12] MEDS ORDERED: CALCIUM CARBONATE 500 MG CHEWABLE TAB PO PRN ×2 (22:41→22:45)
[2018-11-12] MEDS ORDERED: CALCIUM CARBONATE 500 MG CHEWABLE TAB PO ONE (22:44)
[2018-11-13] MEDS: levETIRAcetam 500 MG TAB PO SCH ×2 (08:41→22:03)
[2018-11-13] MEDS: PROPRANOLOL HCL 10 MG TAB PO SCH ×2 (08:41→17:34)
[2018-11-13] MEDS: POLYETHYLENE GLYCOL 3350 17 GM PKT PO SCH (08:41)
[2018-11-13] MEDS: SENNOSIDES/DOCUSATE SODIUM TAB PO SCH (08:41)
[2018-11-13] MEDS: DABIGATRAN ETEXILATE MESYL 150 MG CAP PO SCH ×2 (08:41→22:03)
--- NOTE | 2018-11-13 09:01 | HOSPPROG ---
Hospitalist Progress Note Assessment/Plan: Encephalitis with prolonged hospitalization, weakness, and deficits to mobility and ADLs: * Initial functional independence measure is 71 on 11/08/2018. Standby assist for bed mobility. Cues to initiate. Ambulated 150 ft with contact guard assist and front wheeled walker. She tends to veer to the right. Transfer requires contact guard assist. Climbed and descended 3 stairs with bilateral rails, contact guard to minimal assist. Fall risk due to impulsivity and impaired balance. She can forget to take her walker with her. Grooming and hygiene are done standing with contact guard assist. Upper body dressing with minimal assist, lower body with contact guard assist. Toilet transfer and toileting with contact guard assist. * As of 11/11/2018, ambulating 400 ft with cane standby assist, climbed and descended nerve 12 stairs with 1 rail and cane and supervision. * Continue PT and OT to optimize mobility and ADLs toward the independent or modified independent level. Status post delirium with cognitive impairment, improving: * Scored 18/30 on the [facility] cognitive assessment on 11/05/2018. OLOG 18/30 on 11/08/2018, 21/30 on 11/09/2018. * Moderate to severe cognitive deficits. * Continue treatment per Speech and Language Pathology. Pulmonary emboli, discovered in evaluation for cough of unclear etiology: She has had normal chest x-rays, normal white blood cell count at the end of her hospitalization and no dyspnea. Continue cough suppressant medications. * Chest CT, 11/05/2018, showed pulmonary emboli. She was begun on enoxaparin. Discussed with her pharmacy, 11/06/2018. Her insurance plan covers dabigatran with a $40 co-pay. Had enoxaparin twice daily x5 days, then changed to dabigatran 150 mg p.o. twice daily starting evening of 11/10/2018. Will need to continue 3-6 months. * Chest CT also showed atelectasis and small pleural effusions. Encourage incentive spirometry. * Chest CT also showed central lobular emphysema. Will have trial of albuterol and we will continue it if she gets resolution of cough. Hypokalemia. * Normal potassium and magnesium on 11/05/2018. Discontinued potassium replacement. Normal BMP 11/07/2018. Tremor. Trial of propranolol at 15 mg twice daily. * Improved. Not needing weighted utensils on 11/10/2018. * Continue propranolol. Insomnia. She has had mirtazapine first 2 nights on inpatient rehabilitation. She is oversedated the morning of 11/06/2018. Discontinued mirtazapine. * Sleeping well Anorexia and weight loss. Continue to encourage caloric intake. Dietitian following. * Taking 50% of meals, plus supplements. Abnormal EEG in the hospital for which she has been prescribed levetiracetam: This will be continued until she follows up with Neurology after her discharge for decision on the need for continued levetiracetam. There was no seizure activity seen in the hospital. Tobacco dependence syndrome: Denies craving, 11/09/2018. Constipation: Continue scheduled senna/docusate and polyethylene glycol. * Responding. Prophylaxis: Continue treatment dose enoxaparin until changed to dabigatran on 11/10/2018. Subjective: no new complaints Objective: Vital Signs Temp Pulse Resp BP Pulse Ox 36.8 C 66 18 112/65 96 11/13/18 08:00 11/13/18 08:41 11/13/18 08:00 11/13/18 08:41 11/13/18 08:00 Laboratory Results 11/07/18 05:40 11/12/18 11/13/18 11/14/18 05:59 05:59 05:59 Intake Total 1040 595 Balance 1040 595 - Physical Exam Constitutional: no apparent distress, appears nourished, not in pain Eyes: anicteric sclera, EOMI Ears, Nose, Mouth, Throat: moist mucous membranes Cardiovascular: regular rate and rhythym Respiratory: no respiratory distress Skin: warm Neurologic: AAOx3 Psychiatric: interacting appropriately, not anxious, not encephalopathic, thought process linear ICD10 Worksheet Patient Problems: Problems Problem Status Onset Encephalitis Acute
[2018-11-13] MEDS: ALBUTEROL 60 PUFFS/8 GM MDI IH PRN (15:39)
--- NOTE | 2018-11-14 08:38 | HOSPPROG ---
Hospitalist Progress Note Assessment/Plan: Encephalitis with prolonged hospitalization, weakness, and deficits to mobility and ADLs: * Initial functional independence measure is 71 on 11/08/2018. Standby assist for bed mobility. Cues to initiate. Ambulated 150 ft with contact guard assist and front wheeled walker. She tends to veer to the right. Transfer requires contact guard assist. Climbed and descended 3 stairs with bilateral rails, contact guard to minimal assist. Fall risk due to impulsivity and impaired balance. She can forget to take her walker with her. Grooming and hygiene are done standing with contact guard assist. Upper body dressing with minimal assist, lower body with contact guard assist. Toilet transfer and toileting with contact guard assist. * As of 11/11/2018, ambulating 400 ft with cane standby assist, climbed and descended nerve 12 stairs with 1 rail and cane and supervision. * Continue PT and OT to optimize mobility and ADLs toward the independent or modified independent level. Status post delirium with cognitive impairment, improving: * Scored 18/30 on the [facility] cognitive assessment on 11/05/2018. OLOG 18/30 on 11/08/2018, 21/30 on 11/09/2018. * Moderate to severe cognitive deficits. * Continue treatment per Speech and Language Pathology. Pulmonary emboli, discovered in evaluation for cough of unclear etiology: She has had normal chest x-rays, normal white blood cell count at the end of her hospitalization and no dyspnea. Continue cough suppressant medications. * Chest CT, 11/05/2018, showed pulmonary emboli. She was begun on enoxaparin. Discussed with her pharmacy, 11/06/2018. Her insurance plan covers dabigatran with a $40 co-pay. Had enoxaparin twice daily x5 days, then changed to dabigatran 150 mg p.o. twice daily starting evening of 11/10/2018. Will need to continue 3-6 months. * Chest CT also showed atelectasis and small pleural effusions. Encourage incentive spirometry. * Chest CT also showed central lobular emphysema. Will have trial of albuterol and we will continue it if she gets resolution of cough. Hypokalemia. * Normal potassium and magnesium on 11/05/2018. Discontinued potassium replacement. Normal BMP 11/07/2018. Tremor. Trial of propranolol at 15 mg twice daily. * Improved. Not needing weighted utensils on 11/10/2018. * Continue propranolol. Insomnia. She has had mirtazapine first 2 nights on inpatient rehabilitation. She is oversedated the morning of 11/06/2018. Discontinued mirtazapine. 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 Continue to encourage caloric intake. Dietitian following. * Taking 50% of meals, plus supplements. Abnormal EEG in the hospital for which she has been prescribed levetiracetam: This will be continued until she follows up with Neurology after her discharge for decision on the need for continued levetiracetam. There was no seizure activity seen in the hospital. Tobacco dependence syndrome: Denies craving, 11/09/2018. Constipation: Continue scheduled senna/docusate and polyethylene glycol. * Responding. Prophylaxis: Continue treatment dose enoxaparin until changed to dabigatran on 11/10/2018. Subjective: no new complaints. does sleep a good deal per nursing Objective: Vital Signs Temp Pulse Resp BP Pulse Ox 36.5 C 70 16 119/69 97 11/14/18 08:00 11/14/18 08:00 11/13/18 17:27 11/14/18 08:00 11/13/18 17:27 Laboratory Results 11/07/18 05:40 11/13/18 11/14/18 11/15/18 05:59 05:59 05:59 Intake Total 595 300 Balance 595 300 - Physical Exam Constitutional: no apparent distress, appears nourished, not in pain Eyes: anicteric sclera Ears, Nose, Mouth, Throat: moist mucous membranes Respiratory: no respiratory distress Skin: warm Neurologic: AAOx3 Psychiatric: interacting appropriately, not anxious, not encephalopathic, thought process linear ICD10 Worksheet Patient Problems: Problems Problem Status Onset Encephalitis Acute
[2018-11-14] MEDS: POLYETHYLENE GLYCOL 3350 17 GM PKT PO SCH (08:53)
[2018-11-14] MEDS: PROPRANOLOL HCL 10 MG TAB PO SCH ×2 (08:55→18:13)
[2018-11-14] MEDS: levETIRAcetam 500 MG TAB PO SCH ×2 (08:57→21:50)
[2018-11-14] MEDS: SENNOSIDES/DOCUSATE SODIUM TAB PO SCH (08:57)
[2018-11-14] MEDS: DABIGATRAN ETEXILATE MESYL 150 MG CAP PO SCH ×2 (08:57→21:50)
[2018-11-14] MEDS: ALBUTEROL 60 PUFFS/8 GM MDI IH PRN (18:14)
[2018-11-15] MEDS: SENNOSIDES/DOCUSATE SODIUM TAB PO SCH ×2 (09:14→09:18)
[2018-11-15] MEDS: DABIGATRAN ETEXILATE MESYL 150 MG CAP PO SCH ×2 (09:14→20:05)
[2018-11-15] MEDS: POLYETHYLENE GLYCOL 3350 17 GM PKT PO SCH ×2 (09:14→09:20)
[2018-11-15] MEDS: levETIRAcetam 500 MG TAB PO SCH ×2 (09:15→20:05)
[2018-11-15] MEDS: PROPRANOLOL HCL 10 MG TAB PO SCH ×2 (09:31→18:15)
--- NOTE | 2018-11-15 10:53 | SOAPPROG ---
SOAP Progress Note Assessment/Plan: Assessment: Encephalitis with prolonged hospitalization, weakness, and deficits to mobility and ADLs: * Initial functional independence measure is 71 on 11/08/2018, improved to 98 on . Has it advanced to independent in her room during the day. Independent with bed mobility and transfers. Ambulated greater than 300 ft with no device. Climbed and spend descended 18 stairs with 1 rail independent. Scored 46/56 on the [facility] balance inventory. Independent with ADLs. * Continue PT and OT to optimize mobility and ADLs toward the independent or modified independent level. Status post delirium with cognitive impairment, improving: * Moderate to severe cognitive deficits. Has improvement in speed of processing , initiation, persistence and attention. * Continue treatment per Speech and Language Pathology. Pulmonary emboli, discovered in evaluation for cough of unclear etiology: She has had normal chest x-rays, normal white blood cell count at the end of her hospitalization and no dyspnea. Continue cough suppressant medications. * Chest CT, 11/05/2018, showed pulmonary emboli. She was begun on enoxaparin. Discussed with her pharmacy, 11/06/2018. Her insurance plan covers dabigatran with a $40 co-pay. Had enoxaparin twice daily x5 days, then changed to dabigatran 150 mg p.o. twice daily starting evening of 11/10/2018. Will need to continue 3-6 months. * Chest CT also showed atelectasis and small pleural effusions. Encourage incentive spirometry. * Chest CT also showed central lobular emphysema. Will have trial of albuterol and we will continue it if she gets resolution of cough. Hypokalemia. * Normal potassium and magnesium on 11/05/2018. Discontinued potassium replacement. Normal BMP 11/07/2018. Tremor. Trial of propranolol at 15 mg twice daily. * Improved. Not needing weighted utensils on 11/10/2018. * Intermittent hypotension with no symptoms. Encourage fluid intake. * Continue propranolol. Insomnia. She has had mirtazapine first 2 nights on inpatient rehabilitation. She is oversedated the morning of 11/06/2018. Discontinued mirtazapine. * Sleeping well Anorexia and weight loss. Continue to encourage caloric intake. Dietitian following. * Taking 50% of meals, plus supplements. Abnormal EEG in the hospital for which she has been prescribed levetiracetam: This will be continued until she follows up with Neurology after her discharge for decision on the need for continued levetiracetam. There was no seizure activity seen in the hospital. Tobacco dependence syndrome: Denies craving, 11/09/2018. Constipation: Continue scheduled senna/docusate and polyethylene glycol. * Responding. Prophylaxis: Continue treatment dose enoxaparin until changed to dabigatran on 11/10/2018. DISPOSITION: Attended staffing, 11/15/2018, 15 min. Discussed with case management, nursing, dietitian, PT, OT, SIGN SHOP SUPERVISOR. Lives with who is retired and available 24 hr a day; adult daughter also lives with them. Goal is independent or modified independent with activities of daily living and mobility and improved cognition for safety at home. Discharge home 11/16/2018. Followup: She will follow up with [facility] after her discharge. Will need to identify her primary care provider as well. 11/15/18 10:49 Subjective: Still has some cough. She thinks the Tessalon Perles work better than the albuterol; has not notice that the albuterol helped her cough at all. Sleeping well. Also sleeps during the day. Not in pain. No dyspnea. Objective: Vital Signs Temp Pulse Resp BP Pulse Ox 36.9 C 67 16 101/60 94 11/15/18 05:59 11/15/18 09:31 11/15/18 05:59 11/15/18 09:31 11/15/18 05:59 Laboratory Results 11/07/18 05:40 11/14/18 11/15/18 11/16/18 05:59 05:59 05:59 Intake Total 300 468 120 Balance 300 468 120 Physical Exam - Physical Exam General Appearance: WD/WN, alert, no apparent distress Respiratory: No respiratory distress, No accessory muscle use Skin: normal color, warm/dry Neuro/Psych: no motor/sensory deficits, alert, normal mood/affect, oriented x 3 ICD10 Worksheet Patient Problems: Problems Problem Status Onset Encephalitis Acute
[2018-11-15] MEDS ORDERED: SENNOSIDES/DOCUSATE SODIUM TAB PO PRN (10:54)
--- NOTE | 2018-11-15 14:00 | PDOREHIP ---
Admission [facility] - Admission - 3 Day Assessment Period Admission Date/Day 1: 11/04/18 Day 2: 11/05/18 Day 3: 11/06/18 - Active Diagnoses Comorbidities and Co-existing Conditions at Admission: 81441. None of the Above Discharge [facility] - Discharge - 3 Day Assessment Period 2 Days Prior to Anticipated Discharge Date: 11/14/18 1 Day Prior to Anticipated Discharge Date: 11/15/18 Anticipated Discharge Date: 11/16/18 - Discharge Skin Conditions Unhealed Pressure Ulcer (1 or more/Stage 1 or >)-Discharge: 0. No # Stage 1 Pressure Ulcers-Discharge: 0 # Stage 2 Pressure Ulcers-Discharge: 0 # of These Stage 2 Pressure Ulcers Present on Admission: 0 # Stage 3 Pressure Ulcers-Discharge: 0 # of These Stage 3 Pressure Ulcers Present on Admission: 0 # Stage 4 Pressure Ulcers-Discharge: 0 # of These Stage 4 Pressure Ulcers Present on Admission: 0 # Unstageable Pressure Ulcers (Non-remove Dress)-Discharge: 0 # These Unstageable Pressure Ulcers (NRD)-Present on Admit: 0 # Unstageable Pressure Ulcers (Slough/Eschar)-Discharge: 0 # These Unstageable Pressure Ulcers(Slough) Present on Admit: 0 # Unstageable Pressure Ulcers (Deep Tissue Injury)-Discharge: 0 # These Unstageable Pressure Ulcers (DTI) Present on Admit: 0
[2018-11-15] MEDS: BENZONATATE 100 MG CAP PO PRN (18:19)
[2018-11-16 07:12] VITALS: BP 108/72
[2018-11-16] MEDS: PROPRANOLOL HCL 10 MG TAB PO SCH (07:12)
[2018-11-16] MEDS: DABIGATRAN ETEXILATE MESYL 150 MG CAP PO SCH (08:56)
[2018-11-16] MEDS: levETIRAcetam 500 MG TAB PO SCH (08:56)
[2018-11-16] MEDS: POLYETHYLENE GLYCOL 3350 17 GM PKT PO SCH (08:56)
--- NOTE | 2018-11-16 12:36 | GDS ---
[f rep st] DISCHARGE SUMMARY ADMITTING DIAGNOSIS: Debility and cognitive impairment following encephalitis. DISCHARGE DIAGNOSES: 1. Debility and cognitive impairment following encephalitis. 2. Pulmonary emboli. 3. Tremor. COMPLICATIONS: None. CONSULTATIONS: None. PROCEDURES: None. HISTORY AND HOSPITAL COURSE: This patient was admitted from [facility], she presen pavan there after approximately 6 days of illness with fevers and myalgias. During that time, she pres ented to an Urgent Care and was diagnosed with a urinary tract infection and treated with cephalexin. In the hospital, she had CSF pleocytosis, an elevated white blood cell count in the blood, and an E EG which showed right cortical abnormalities. No clear etiology of her encephalitis was identified. There was no stroke seen on head CT or brain MRI. Hospital course included acute kidney injury due to acyclovir, delirium, insomnia, and constipation. She was treated with acyclovir briefly until HSV came back negative coincident with renal impairment caused by the acyclovir. She was also treated w ith vancomycin and ceftriaxone. She eventually had improvement [facility] She did well in rehabilitation. Initially she was needing assistance with most aspects of mobility a nd activities of daily living at the senior care level. Ultimately, she advanced to independent lev el in her room during the day. She was able to ambulate greater than 300 feet with no device. She c limbed and descended 18 stairs with 1 rail independently. She scored 46/56 on the Dave balance inven tory, which corresponds to low fall risk. She was independent with activities of daily living. She had moderate to severe cognitive deficits initially. She had improvement in speed of processing, initiation, persistence and attention under the care of Speech and Language Pathology. She had a cough, which had preceded her admission by several days. There had been normal chest x-ray s in the hospital. Chest CT was obtained and found pulmonary emboli. She was initially treated with enoxaparin and subsequently changed to dabigatran, which she should continue for 3-[address] also showed central emphysema, albuterol was not helpful for her cough and she never had dyspnea. She had a tremor which interfered with using utensils to eat. Initially she was treated with weighte d utensils by occupational therapy. Subsequently, she was begun on propranolol and her tremor progre ssively improved. She was no longer needing weighted utensils and her tremor was not interfering wit h her function. DISCHARGE PLAN: Disposition is home with her . Condition is good. Diet is regular. 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 ALLERGIES: There continue to be no known drug allergies. MEDICATIONS UPON DISCHARGE: 1. Acetaminophen 650 mg p.o. q.4 hours p.r.n. 2. Benzonatate 100 mg capsules 1 p.o. q.4 hours p.r.n. cough. 3. Dabigatran 150 mg p.o. b.i.d. times 3-6 months. 4. Guaifenesin/dextromethorphan 10 mL p.o. q.4 hours p.r.n. 5. Levetiracetam 500 mg p.o. b.i.d. until followup with Neurology. 6. Polyethylene glycol 17 g p.o. daily p.r.n. constipation. 7. Propranolol mg p.o. b.i.d. before breakfast and dinner. 8. Senna/docusate 1 p.o. daily. ISSUES TO BE ADDRESSED AT FOLLOWUP: 1. Mobility, functional status, and cognition. She will continue working with PT, OT, and COUTURE ALTERATIONS DRESSMAKER at [facility]. She can follow up with her primary care physician. 2. History of encephalitis. She continued to have CSF pleocytosis on repeat testing in the hospital . She will follow up with Dr. Sendy Bridges with [facility] after discharge. 3. Pulmonary emboli. Continue dabigatran for 3-6 months and follow up with primary care. 4. Tremor. She was advised that she could try skipping propranolol and if she no longer has a bothe rsome tremor, she does not need to continue it. Followup with primary care. 5. Abnormal EEG in the hospital. There were no seizures noted. Continue levetiracetam until follow up with Neurology. 6. History of tobacco dependence syndrome. She denies craving and intends to continue cessation. S he did not require any nicotine replacement, but this could be considered if she has return of tobacc o craving. Greater than 30 minutes were spent on this discharge including medication reconciliation, coordinatio n of care, and counseling the patient. The patient was seen and examined on the day of discharge. Copy requested to: Sendy Bridges MD [facility] Multisensor Intelligence Officer MD Armond /[id number]/[id number]
== END 2018-11-16 12:35 | disposition home or self-care (01) | DRG 97 ==
LOC: BREH 16:10 → F3E 11-09 11:10
PROVIDERS: ADMIT Internal Medicine Hospice and Palliative Medicine; ATTEND Internal Medicine Hospice and Palliative Medicine
PROC: F0636ZZ Communicative/Cognitive Integration Skills Treatment of Neurological System - Whole Body (ICD-10-PCS; principal; 2018-11-04)
PROC: F08Z7ZZ Vocational Activities and Functional Community or Work Reintegration Skills Treatment (ICD-10-PCS; principal; 2018-11-04)
PROC: F07M3ZZ Motor Function Treatment of Musculoskeletal System - Whole Body (ICD-10-PCS; principal; 2018-11-04)
DX: G04.90 Encephalitis and encephalomyelitis, unspecified (principal); R05 Cough; R94.01 Abnormal electroencephalogram [EEG]; G47.00 Insomnia, unspecified; F17.200 Nicotine dependence, unspecified, uncomplicated; K59.00 Constipation, unspecified; I26.99 Other pulmonary embolism without acute cor pulmonale; J43.8 Other emphysema; R25.1 Tremor, unspecified; E87.6 Hypokalemia
CPT/HCPCS: 92507-GN; 92508-GN; 92523-GN; 97110-GO; 97110-GP; 97112-GP; 97116-GP; 97161-GP; 97166-GO; 97530-GO; 97530-GP; 97535-GO; G0515-GO; J0696; J1650; Q9967